=== PATIENT | male | born 1995 | race African-American/Black ===

== ENCOUNTER 2023-11-17 02:01 | Emergency (ER) | payer OTHER ==
[~2023-11-17] VITALS: Ht 177.8 cm; Wt 72.0 kg
[2023-11-17 02:05] VITALS: O2SAT 100
[2023-11-17] MEDS: SODIUM CHLORIDE 0.9% 1,000 ML IV ONE (02:52)
[2023-11-17 02:53] LABS: BASOPHILS % 0.8 % (0.0-2.0); DIFFERENTIAL COMMENT 0; EOSINOPHILS % 1.5 % (0.0-5.0); HEMATOCRIT. 46.2 % (42.0-52.0); HEMOGLOBIN. 14.6 g/dL (14.0-18.0); LYMPHOCYTES % 31.9 % (20.0-50.0); MEAN CORPUSCULAR HEMOGLOBIN 29.6 pg (28.0-32.0); MEAN CORPUSCULAR HGB CONC 31.6 g/dL (31.0-37.0); MEAN CORPUSCULAR VOLUME 93.5 fL (80.0-94.0); MEAN PLATELET VOLUME 10.7 fl (7.4-10.4); MONOCYTES % 8.1 % (2.0-8.0); NEUTROPHILS % 57.7 % (40.0-76.0); PLATELET 164 x1000/uL (130-400); RED BLOOD CELL COUNT 4.94 mill/uL (4.7-6.1); RED CELL DISTRIBUTION WIDTH 12.6 % (11.6-14.6); WHITE BLOOD COUNT 7.2 x1000/uL (4.5-11.0)
[2023-11-17 03:00] LABS: CARBON DIOXIDE 26 mEq/L (21-32); CHLORIDE 106 mEq/L (98-107); SODIUM 142 mEq/L (136-145)
[2023-11-17 03:01] LABS: CALCIUM 9.1 mg/dL (8.7-10.4)
[2023-11-17 03:06] LABS: CREATININE 1.2 mg/dL (0.6-1.3); ETHANOL BLOOD 278 mg/dL (<10); GLUCOSE 114 mg/dL (70-105); UREA NITROGEN BLOOD 12 mg/dL (9-23)
[2023-11-17 03:07] LABS: ACETAMINOPHEN < 2 ug/mL (10-30)
[2023-11-17 03:20] LABS: POTASSIUM 2.7 mEq/L (3.5-5.1)
[2023-11-17] MEDS: TETANUS, DIPHTHERIA, PERTUSSIS VAC/PF 0.5ML (>10YR OLD) IM ONE (03:22)
[2023-11-17] MEDS: POTASSIUM CHLORIDE 20MEQ TABLET SR PO ONE (04:16)
[2023-11-17] MEDS: KCL 20MEQ/100ML PREMIX 100 ML IV SCH (04:32)
[2023-11-17] MEDS: HALOPERIDOL LACTATE 5MG/ML VIAL IM ONE ×2 (04:33→05:11)
[2023-11-17] MEDS: DIPHENHYDRAMINE 50MG/ML VIAL IV ONE (04:33)
[2023-11-17] MEDS: LORAZEPAM 2MG/ML INJ IV ONE ×3 (04:33→07:00)
[2023-11-17 05:12] VITALS: TEMP 36.66960
[2023-11-17 06:39] VITALS: BP 121/87; PULSE 87; RESP 16; O2SAT 100
[2023-11-17] MEDS: ZIPRASIDONE MESYLATE 20MG/VIAL IM ONE (07:00)
[2023-11-17 08:51] LABS: CHLORIDE 113 mEq/L (98-107); POTASSIUM 4.1 mEq/L (3.5-5.1); SODIUM 144 mEq/L (136-145)
[2023-11-17 08:52] LABS: CARBON DIOXIDE 25 mEq/L (21-32)
[2023-11-17 08:53] LABS: CALCIUM 8.6 mg/dL (8.7-10.4)
[2023-11-17 08:57] LABS: CREATININE 0.9 mg/dL (0.6-1.3); GLUCOSE 74 mg/dL (70-105)
[2023-11-17 08:58] LABS: UREA NITROGEN BLOOD 10 mg/dL (9-23)
== END 2023-11-17 09:45 ==
LOC: ER 02:18 → EDBD 02:18 → ER 09:45
DX: R45.1 Restlessness and agitation (principal); R00.0 Tachycardia, unspecified; R41.82 Altered mental status, unspecified
CPT/HCPCS: 80048; 80307; 80329; 80320; 85025; 36415; 71045; 70450; 90715; 90471; 96361; 96372; 96374; 96375; 96376; 99285; J1200; J1630; J2060; J3480; J3486; J7030; Z7610 ×4; G0480